=== PATIENT | female | born 1990 | race Hispanic/Latino ===

== ENCOUNTER → 2018-06-27 | Outpatient (CLI) | payer OTHER ==
[~2018-06-27] MED LIST: PREN-154 PO
== END | disposition home or self-care (01) ==
LOC: RAH 08:31
PROVIDERS: ATTEND Internal Medicine
DX: K80.20 Calculus of gallbladder without cholecystitis without obstruction (principal)
CPT/HCPCS: 76700

== ENCOUNTER 2018-08-20 07:29 | Day surgery (SDC) | payer OTHER ==
[2018-08-16 09:45] VITALS: BP 122/66
[2018-08-16 10:02] LABS: BASOPHILS % (AUTO) 0.4 % (0.0-5.0); EOSINOPHILS % (AUTO) 3.1 % (0.0-8.0); HEMATOCRIT 43.5 % (36-48); LYMPHOCYTES % (AUTO) 27.9 % (21.0-51.0); MEAN CORPUSCULAR HEMOGLOBIN 30.8 pg (27.0-33.0); MEAN CORPUSCULAR HGB CONC 33.5 g/dL (32.0-36.0); MONOCYTES % (AUTO) 8.8 % (3.0-13.0); NEUTROPHILS % (AUTO) 59.8 % (40.0-77.0); PLATELET COUNT (AUTO) 238 K/uL (130-400); RED BLOOD CELL COUNT(AUTO) 4.73 MIL/uL (4.00-5.50); RED CELL DISTRIBUTION WIDTH 13.9 % (11.0-15.5); WHITE BLOOD COUNT (AUTO) 5.7 K/uL (4.8-10.8)
[2018-08-16 10:17] LABS: APPEARANCE,URINE Clear (CLEAR); BILIRUBIN,URINE Negative (NEGATIVE); COLOR,URINE Yellow (YELLOW); GLUCOSE, URINE (UA) Negative (NEGATIVE); KETONES,URINE Negative (NEGATIVE); LEUKOCYTE ESTERASE ,URINE Negative (NEGATIVE); NITRATE,URINE Negative (NEGATIVE); OCCULT BLOOD,URINE Negative (NEGATIVE); PH,URINE 7.5 (5.0-8.0); PROTEIN,URINE Negative (NEGATIVE)
[2018-08-16 10:21] LABS: ALBUMIN 4.2 g/dL (3.5-5.0); BILIRUBIN,DIRECT 0.1 mg/dL (0.0-0.3); BILIRUBIN,TOTAL 0.5 mg/dL (0.2-1.0); TOTAL PROTEIN, SERUM 7.7 g/dL (6.0-8.3)
[~2018-08-20] VITALS: Ht 157.5 cm; Wt 85.0 kg
[2018-08-20] VITALS (17 sets, daily range): BP systolic 115–133; BP diastolic 67–78
[~2018-08-20 07:29] MED LIST changes: +LACTATED RINGERS 1000ML 1,000 ML IV SCH; -PREN-154 PO; +PROAIR HFA IH
[2018-08-20] MEDS ORDERED: HEPARIN SODIUM 1000UNIT/ML 10ML VIAL ONE (07:54)
--- NOTE | 2018-08-20 08:12 | NUR ---
VALUABLES: CLOTHING, GLASSES, INHALER AND PURSE GIVEN TO SISTER - BRIDGETTE AVILES.
[2018-08-20] MEDS ORDERED: SUCCINYLCHOLINE CHLORIDE 20 MG/ML 10 ML VIAL ONE ×2 (08:24→08:28)
[2018-08-20] MEDS ORDERED: LIDOCAINE HCL MPF 1% 5ML VIAL ONE (08:24)
[2018-08-20] MEDS ORDERED: ROCURONIUM 10MG/1ML SYR 10 MG/ML ML ONE (08:25)
[2018-08-20] MEDS ORDERED: FENTANYL CITRATE PF 50 MCG/1 ML 2ML VIAL ONE ×2 (08:25→09:23)
[2018-08-20] MEDS ORDERED: PROPOFOL 10 MG/ML 20ML VIAL IV ONE (08:25)
[2018-08-20] MEDS ORDERED: GLYCOPYRROLATE 1 MG/5 ML SYRINGE ONE (08:56)
[2018-08-20] MEDS ORDERED: EPHEDRINE SULFATE 50 MG/ML AMPULE ONE (09:00)
[2018-08-20] MEDS ORDERED: KETOROLAC TROMETHAMINE 30MG/ML ONE ×2 (09:18→09:55)
[2018-08-20] MEDS ORDERED: NEOSTIGMINE 5MG/5ML SYR IV ONE (09:18)
[2018-08-20] MEDS ORDERED: MEPERIDINE-PF 25 MG/ML SYG ONE (10:10)
[2018-08-20] MEDS ORDERED: ACETAMINOPHEN-CODEINE 300/30MG TAB ONE (11:37)
--- NOTE | 2018-08-20 11:40 | NUR ---
IV DISCONTINUED BY NAHUM RN ,CATH INTACT
--- NOTE | 2018-08-20 11:50 | NUR ---
RESTING IN BED COMFORTABLY, MOM AT BEDSIDE ,CALLBELL IN REACH
--- NOTE | 2018-08-20 12:16 | NUR ---
TO CAR VIA W/C ,NO COMPLAINTS OF PAIN
[2018-08-20] MEDS ORDERED: ACETAMINOPHEN-CODEINE 300/30MG TAB PO ONE (13:00)
== END 2018-08-20 12:16 | disposition home or self-care (01) ==
LOC: DAH 07:29
PROVIDERS: ATTEND Surgery
DX: K80.10 Calculus of gallbladder with chronic cholecystitis without obstruction (principal); E66.9 Obesity, unspecified; Z68.34 Body mass index [BMI] 34.0-34.9, adult; Z83.3 Family history of diabetes mellitus; J45.909 Unspecified asthma, uncomplicated
CPT/HCPCS: 36415; 47562; 80076; 81003; 84702; 85025; 88304; A4450; A4600; C1769 ×4; J0330; J1644; J1885 ×2; J2175; J2704; J2710; J3010 ×2; J3490 ×3; J7030; J7120

== ENCOUNTER → 2019-06-04 | Outpatient (CLI) | payer OTHER ==
[~2019-06-04] MED LIST changes: -LACTATED RINGERS 1000ML 1,000 ML IV SCH
== END | disposition home or self-care (01) ==
LOC: RAH 10:10
PROVIDERS: ATTEND Internal Medicine
DX: M79.605 Pain in left leg (principal); M25.462 Effusion, left knee
CPT/HCPCS: 93971